=== PATIENT | female | born 1945 | race Caucasian/White ===

== ENCOUNTER → 2017-03-12 | Outpatient (CLI) | payer BC ==
[2015-11-24 23:16] VITALS: BP 160/80
[~2017-03-12] MED LIST: ESTR0.62 PO; FAMO20TA5 PO; GEMF600T3 PO; HYDR115S2 PO; LISI-334 PO; PILO7.5T PO; PROAIR HFA8.5 GM INH
--- NOTE | 2017-03-12 12:57 | KCIC ---
Bilateral digital screening mammograms: Reason for examination: Routine screening. Comparison is made to previous studies dated back to 03/10/2014. The skin and nipples show no abnormalities. No abnormal axillary lymph nodes are seen. The breast parenchyma shows scattered fibroglandular density. (Breast density: Category B.) There continue to be small nodular parenchymal densities bilaterally which have not changed. There are no new dominant masses, suspicious calcifications or architectural distortions. Impression: No evidence of malignancy. Recommend routine screening. BI-RADS Category 2: Benign. "Our facility is accredited by the [employer] Mammography [employer]." This patient's information has been entered into a reminder system for the patient to be notified with the results of her examination and a target date for the next mammogram. Electronically signed by: Michelle Hewitt MD (03/12/2017 12:54 PM) [id number]
== END | disposition home or self-care (01) ==
LOC: KCIC MAMMO 09:41
PROVIDERS: ATTEND Family Medicine
DX: Z12.31 Encounter for screening mammogram for malignant neoplasm of breast (principal)
CPT/HCPCS: G0202; 77067

== ENCOUNTER → 2018-03-19 | Outpatient (CLI) | payer BC ==
[2015-11-24 23:16] VITALS: BP 160/80
[~2018-03-19] MED LIST changes: -GEMF600T3 PO; +GEMF600T4 PO
--- NOTE | 2018-03-19 12:19 | KCIC ---
Bilateral digital screening mammograms: Reason for examination: Routine screening. Comparison is made to previous studies dated back to 03/16/2015. Interpretation was made with the benefit of CAD. The skin and nipples show no abnormalities. No abnormal axillary lymph nodes are seen. The breast parenchyma shows scattered fibroglandular density. (Breast density: Category B.) There continued be small nodular parenchymal densities bilaterally which have not changed. Those posteriorly in the upper outer quadrants are consistent with intramammary lymph nodes. There are no new dominant masses, suspicious calcifications or architectural distortions. Impression: No evidence of malignancy. Recommend routine screening. BI-RADS Category 2: Benign. "Our facility is accredited by the [employer] Mammography [employer]." This patient's information has been entered into a reminder system for the patient to be notified with the results of her examination and a target date for the next mammogram. Electronically signed by: Michelle Hewitt MD (03/19/2018 12:15 PM) [facility]
== END | disposition home or self-care (01) ==
LOC: KCIC MAMMO 11:01
PROVIDERS: ATTEND Family Medicine
DX: Z12.31 Encounter for screening mammogram for malignant neoplasm of breast (principal); Z88.1 Allergy status to other antibiotic agents
CPT/HCPCS: 77067

== ENCOUNTER → 2019-03-25 | Outpatient (CLI) | payer BC ==
[2015-11-24 23:16] VITALS: BP 160/80
[~2019-03-25] MED LIST changes: +ALBU2.5V8 INH; -GEMF600T4 PO; +GEMF600T8 PO; -PROAIR HFA8.5 GM INH
--- NOTE | 2019-03-26 07:59 | KCIC ---
Bilateral digital screening mammograms with 3-D tomosynthesis: Reason for examination: Routine screening. Comparison is made to previous studies dated 03/19/2018 and 03/12/2017. Bilateral mammograms in CC and oblique projections were obtained with 2-D imaging and 3-D tomosynthesis imaging on a Siemens Inspiration unit and reviewed on the workstation. Interpretation was made with the benefit of CAD. The skin and nipples show no abnormalities. No abnormal axillary lymph nodes are seen. The breast parenchyma shows scattered fatty and fibroglandular density. (Breast density: Category B.) There continue to be small nodular densities bilaterally which are stable. There are no new dominant masses, suspicious calcifications or architectural distortion. Impression: No evidence of malignancy. Recommend routine screening. BI-RAD Category 2: Benign. "Our facility is accredited by the [employer] Mammography Program." This patient's information has been entered into a reminder system for the patient to be notified with the results of her examination and a target date for the next mammogram. Electronically signed by: Michelle Hewitt MD (03/26/2019 7:56 AM) [facility]
== END | disposition home or self-care (01) ==
LOC: KCIC MAMMO 08:46
PROVIDERS: ATTEND Family Medicine
DX: N64.89 Other specified disorders of breast (principal); Z12.31 Encounter for screening mammogram for malignant neoplasm of breast
CPT/HCPCS: 77063; 77067

== ENCOUNTER → 2020-04-27 | Outpatient (CLI) | payer BC ==
[2015-11-24 23:16] VITALS: BP 160/80
--- NOTE | 2020-04-27 15:56 | CARD ---
MR#: [id number] Date of Study: 04/27/2020 Ordering Physician: ELISABETH SQUIRES, Referring Physician: ELISABETH SQUIRES Tech: Farnchesca Escalera RDCS APPROVED REPORT EXAM: Two-dimensional and M-mode echocardiogram with Doppler and color Doppler. Other Information Quality : Good INDICATION Palpitations 2D DIMENSIONS RVDd2.6 (2.9-3.5cm)Left Atrium(2D)3.2 (1.6-4.0cm) IVSd0.9 (0.7-1.1cm)Aortic Root(2D)3.0 (2.0-3.7cm) LVDd4.4 (3.9-5.9cm)LVOT Diameter2.1 (1.8-2.4cm) PWd0.9 (0.7-1.1cm)LVDs2.8 (2.5-4.0cm) FS (%) 35.7 %SV56.9 ml LVEF(%)60.0 (>50%) Aortic Valve AoV Peak Naren.121.8cm/sAoV VTI23.5cm AO Peak GR.5.9mmHgLVOT Peak Naren.116.1cm/s AO Mean GR.3mmHgAVA (VMAX)3.33cm2 NNAMDI (VTI)3.20cm2 Mitral Valve MV E Pnkstzfr69.6cm/sMV DECEL ZZES484lf MV A Fsupahwo775.5cm/sE/A Ratio0.7 Tricuspid Valve TR P. Qkgiyybk684dw/sRAP EFWYWCSZ3umLu TR Peak Gr.53ggSvWDWM80zlPw Pulmonary Vein S1 Giodyxgr70.6cm/sD2 Rlhjlhyj51.2cm/s LEFT VENTRICLE The left ventricle is normal size. There is normal left ventricular wall thickness. The left ventricu lar systolic function is normal and the ejection fraction is within normal range. The Ejection Fracti on is 55-60%. There is normal LV segmental wall motion. Transmitral Doppler flow pattern is Grade I-a bnormal relaxation pattern. RIGHT VENTRICLE The right ventricle is normal size. The right ventricular systolic function is normal. ATRIA The left atrium size is normal. The right atrium size is normal. The interatrial septum is intact wit h no evidence for an atrial septal defect or patent foramen ovale as noted on 2-D or Doppler imaging. AORTIC VALVE The aortic valve is calcified but opens well. Doppler and Color Flow revealed no significant aortic r egurgitation. There is no significant aortic valvular stenosis. MITRAL VALVE The mitral valve is calcified but opens well. Mitral annular calcification is mild. There is no evide nce of mitral valve prolapse. There is no mitral valve stenosis. Doppler and Color Flow revealed no m itral valve regurgitation noted. TRICUSPID VALVE The tricuspid valve is normal in structure and function. Doppler and Color Flow revealed trace to mil d tricuspid regurgitation. The PA pressure was estimated at 31 mmHg. There is no tricuspid valve sten osis. PULMONIC VALVE The pulmonic valve is not well visualized. Doppler and Color Flow revealed trace pulmonic valvular re gurgitation. There is no pulmonic valvular stenosis. GREAT VESSELS The aortic root is normal in size. The ascending aorta is mildly dilated at 3.4 cm. The IVC is normal in size and collapses >50% with inspiration. PERICARDIAL EFFUSION There is no evidence of significant pericardial effusion. Critical Notification Critical Value: No <Conclusion> The left ventricle is normal size. The left ventricular systolic function is normal and the ejection fraction is within normal range. The Ejection Fraction is 55-60%. Doppler and Color Flow revealed no significant aortic regurgitation. There is no significant aortic valvular stenosis. Doppler and Color Flow revealed no mitral valve regurgitation noted. Doppler and Color Flow revealed trace to mild tricuspid regurgitation. The PA pressure was estimated at 31 mmHg. The ascending aorta is mildly dilated at 3.4 cm. Signed by : Lalo Chau MD Electronically Approved : 04/27/2020 15:56:02
== END ==
LOC: ECHO 09:27
PROVIDERS: ATTEND Internal Medicine Cardiovascular Disease
DX: I08.3 Combined rheumatic disorders of mitral, aortic and tricuspid valves (principal)
CPT/HCPCS: 93306

== ENCOUNTER → 2020-08-30 | Outpatient (CLI) | payer BC ==
[2015-11-24 23:16] VITALS: BP 160/80
[~2020-08-30] MED LIST changes: +GEMF600T20 PO; -GEMF600T8 PO; -LISI-334 PO; +LISI20TA18 PO
--- NOTE | 2020-08-30 10:03 | KCIC ---
EXAM: Right hand, 3 views. HISTORY: Polyarthralgia. COMPARISON: None. FINDINGS: 3 views of the right hand are obtained. There is no acute fracture, dislocation or subluxat ion. The alignment and joint spaces are unremarkable. IMPRESSION: No acute osseous finding. Electronically signed by: Samira Jansen MD (08/30/2020 10:00 AM) [id number]
== END ==
LOC: KCIC 09:15
PROVIDERS: ATTEND Internal Medicine Rheumatology
DX: M19.042 Primary osteoarthritis, left hand (principal); M19.041 Primary osteoarthritis, right hand
CPT/HCPCS: 73130-50

== ENCOUNTER → 2020-08-30 | Outpatient (CLI) | payer BC ==
[2015-11-24 23:16] VITALS: BP 160/80
--- NOTE | 2020-08-30 15:05 | KCIC ---
Bilateral digital screening mammograms with 3-D tomosynthesis: Reason for examination: Routine screening. Comparison is made to previous studies dated back to 03/15/2016. Bilateral mammograms in CC and oblique projections were obtained with 2-D imaging and 3-D tomosynthes is imaging on a Siemens Inspiration unit and reviewed on the workstation. Interpretation was made wit h the benefit of CAD. The skin and nipples show no abnormalities. No abnormal axillary lymph nodes are seen. The breast par enchyma shows scattered fatty and fibroglandular density. (Breast density: Category B.) There are sma ll nodules consistent with intramammary lymph nodes again seen bilaterally which are unchanged. There are no new dominant masses, suspicious calcifications or architectural distortion. Impression: No evidence of malignancy. Recommend routine screening. BI-RAD Category 2: Benign. "Our facility is accredited by the [employer] Mammography Program." This patient's information has been entered into a reminder system for the patient to be notified wit h the results of her examination and a target date for the next mammogram. Electronically signed by: Michelle Hewitt MD (08/30/2020 3:03 PM) [email or web address]
== END ==
LOC: KCIC MAMMO 09:08
PROVIDERS: ATTEND Family Medicine
DX: Z12.31 Encounter for screening mammogram for malignant neoplasm of breast (principal)
CPT/HCPCS: 77063; 77067

== ENCOUNTER → 2020-12-14 | Outpatient (CLI) | payer BC ==
[2015-11-24 23:16] VITALS: BP 160/80
[~2020-12-14] MED LIST changes: +REGADENOSON 0.4 MG/5 ML DISP.SYRIN. IV ONE
--- NOTE | 2020-12-14 14:25 | RAD ---
MR#: [id number] Date of Study: 12/14/2020 Ordering Physician: ELISABETH SQUIRES, Referring Physician: CINDY PINK Tech: AMIRA Campoverde ARRT (R) (N) APPROVED REPORT Test Type: Pharmacological Stress Nurse/Tech: Maria De Jesus Hardin R.N. Test Indications: cp Cardiac History: afib, high chol, dm, htn Medications: see ehr Medical History: see ehr Resting ECG: sr Resting Heart Rate: 62 bpm Resting Blood Pressure: 157/62mmHg Pretest Chest Pain: No chest pain Nurse/Tech Notes lungs cta, heart tones regular Consent: The procedure was explained to the patient in lay terms. Informed consent was witnessed. Kendrick eout was entered into [employer]. History and Stress Test performed by RT Chrystal (R) (N) Pharm. Details Pharmacologic stress testing was performed using 0.4mg per 5ml of regadenoson given intravenously ove r 7-10 seconds. Stress Symptoms No chest pain or symptoms. POST EXERCISE Reason for Termination: Infusion complete Target HR: No Max HR: 103 bpm Max Blood Pressure: 176/63mmHg Chest Pain: No. Arrhythmia: No. ST Change: No. INTERPRETATION Stress EKG Conclusion: No evidence of stress induced EKG changes. Imaging Protocol IMAGE PROTOCOL: Rest Tc-99m/stress Tc-99m 1 day Rest: Stress: Viability: Radiopharm.Tc99m XhixpcvdeVh52n Sestamibi Dose10.4mCi 31.5mCi Img Date 12/14/2020 12/14/2020 Inj-Img Uheb15hbm. 60min. Rest Admin Site:IV - Right ForearmAdministrator:AMIRA Campoverde ARRT (R)(N) Stress Admin Site: IV - Right ForearmAdministrator: RT Katty Jarrell)(N) STRESS DATA End Diast. Vol.58.0mlLVEDV index BSA34.0ml End Syst. Vol.11.0mlLVESV index BSA7.0ml Myocardial Xjqy895.0gEject. Ucfvjwic02.0% Stress Scores Regional WT1.00Summed WT5.00 Regional WM0.00Summed WM0.00 The rest and stress images show normal perfusion, normal contraction and thickening. LV Perf. Quant 17 Seg. SSS1.00 17 Seg. SRS0.00 17 Seg. SDS1.00 Stress Defect Extent (% LAD)0.00Rest Defect Extent (% LAD)0.00Rev. Defect Extent (% LAD)0.00 Stress Defect Extent (% LCX) 0.00Rest Defect Extent (% LCX)0.00Rev. Defect Extent (% LCX)0.00 Stress Defect Extent (% RCA)0.00Rest Defect Extent (% RCA)0.00Rev. Defect Extent (% RCA)0.00 Stress Defect Extent (% JOCY)0.00Rest Defect Extent (% JOCY)0.00Rev. Defect Extent (% JOCY)0.00 Other Information Quality:Good Risk Assessment: Low Risk Conclusion 1. No evidence of EKG changes with stress testing. 2. Normal perfusion at stress/rest. 3. Low risk study. 4. EF > 60%. Signed by : Damien Woods, Electronically Approved : 12/14/2020 14:24:42
== END ==
LOC: NM 09:22
PROVIDERS: ATTEND Internal Medicine Cardiovascular Disease
DX: R07.9 Chest pain, unspecified (principal)
CPT/HCPCS: 78452; 93017; A9500; J2785

== ENCOUNTER → 2021-06-14 | Outpatient (CLI) | payer BC ==
[2015-11-24 23:16] VITALS: BP 160/80
[~2021-06-14] MED LIST changes: -REGADENOSON 0.4 MG/5 ML DISP.SYRIN. IV ONE
--- NOTE | 2021-06-14 14:28 | RAD ---
MR#: [id number] Date of Study: 06/14/2021 Ordering Physician: ELISABETH SQUIRES, Referring Physician: ELISABETH SQUIRES, Tech: Gonzales Anderson MBA, RDMS, RVT, RDCS, RTR APPROVED REPORT Patient Location : OUT-PATIENT Indications VENOUS INSUFFICIENCY Deep System Deep Venous Reflux present : Yes Greater Saphenous Veins (GSV) Significant venous relux noted in the LEFT GSV at the following levels : Superficial Femoral Junction , Proximal Calf, Mid Calf, Distal Calf Lesser Saphenous Veins (LSV) Significant venous reflux is noted in the Left LSV. Findings Limited grayscale images the bilateral saphenofemoral junctions are grossly unremarkable. On the right side there is no evidence of reflux in the greater and lesser saphenous vein On the left side there is mild reflux in the greater saphenous vein with a reflux time of 1.3 seconds . There is moderate reflux with a maximum reflux time of 2.4 seconds in the left lesser saphenous ve in. Critical Notification Critical Value: No <Conclusion> 1. Negative for reflux in the right greater and lesser saphenous veins 2. Mild reflux in the left greater saphenous vein and moderate reflux in the left lesser saphenous v ein. Signed by : Damien Woods, Electronically Approved : 06/14/2021 14:28:28
== END ==
LOC: US 12:58
PROVIDERS: ATTEND Internal Medicine Cardiovascular Disease
DX: I82.813 Embolism and thrombosis of superficial veins of lower extremities, bilateral (principal); I87.2 Venous insufficiency (chronic) (peripheral)
CPT/HCPCS: 93970

== ENCOUNTER → 2021-09-04 | Outpatient (CLI) | payer BC ==
[2015-11-24 23:16] VITALS: BP 160/80
--- NOTE | 2021-09-04 14:07 | KCIC ---
Bilateral digital screening mammograms with 3-D tomosynthesis: Reason for examination: Routine screening. Comparison is made to previous studies dated back to 03/15/2016. Bilateral mammograms in CC and oblique projections were obtained with 2-D imaging and 3-D tomosynthes is imaging on a Siemens Inspiration unit and reviewed on the workstation. Interpretation was made wit h the benefit of CAD. The skin and nipples show no abnormalities. No abnormal axillary lymph nodes are seen. The breast par enchyma shows scattered fatty and fibroglandular density. (Breast density: Category B.) There appears to be a nodule approximately 3 cm posterior to the nipple in the retroareolar 9:00 position of the r ight breast measuring approximately 6.5 mm in greatest dimension. Further evaluation with ultrasound is recommended. There are no other new dominant masses, suspicious calcifications or architectural di stortion. Impression: 6.5 mm nodule in the retroareolar 9:00 position of the right breast 3 cm posterior to the nipple. Rec ommend further evaluation with ultrasound. BI-RAD Category 0: Incomplete. Needs additional imaging evaluation. "Our facility is accredited by the [employer] Mammography Program." This patient's information has been entered into a reminder system for the patient to be notified wit h the results of her examination and a target date for the next mammogram. Electronically signed by: Michelle Hewitt MD (09/04/2021 2:05 PM) [email or web address]
== END ==
LOC: KCIC MAMMO 12:41
PROVIDERS: ATTEND Family Medicine
DX: Z12.31 Encounter for screening mammogram for malignant neoplasm of breast (principal)
CPT/HCPCS: 77063; 77067

== ENCOUNTER → 2021-09-18 | Outpatient (CLI) | payer BC ==
[2015-11-24 23:16] VITALS: BP 160/80
--- NOTE | 2021-09-18 15:28 | KCIC ---
Right breast ultrasound: Reason for examination: Nodular density on screening mammogram. Comparison is made to mammographic exam dated 09/04/2021. Ultrasound examination of the right breast and axilla was performed. At the 10:00 position 1 cm from the nipple, there appears to be some ductal ectasia and fibrocystic c hanges which probably corresponds to the area of mammographic concern and measures approximately 7 x 7.5 mm in greatest dimension. No other cystic or solid nodules are seen. No abnormal appearing lymph nodes are seen in the right axilla. IMPRESSION: Ductal ectasia and fibrocystic type changes at the 10:00 position which probably correspond to the ar ea of mammographic concern. Recommend reevaluation with mammograms and ultrasound in 6 months. BI-RADS Category 3: Probably Benign. "Our facility is accredited by the [employer] Mammography Program." This patient's information has been entered into a reminder system for the patient to be notified wit h the results of her examination and a target date for the next mammogram. Electronically signed by: Michelle Hewitt MD (09/18/2021 3:26 PM) [id number]
== END ==
LOC: KCIC US 13:00
PROVIDERS: ATTEND Family Medicine
DX: N60.41 Mammary duct ectasia of right breast (principal); N64.89 Other specified disorders of breast
CPT/HCPCS: 76641